=== PATIENT | male | born 1995 | race Caucasian/White ===

== ENCOUNTER 2019-05-07 03:32 | Emergency (ER) | payer BC ==
[~2019-05-07] VITALS: Ht 170.2 cm; Wt 54.4 kg
[~2019-05-07 03:32] MED LIST: EPIPEN0.3 MG/0.3; NOHOMEMEDICATIONS
[2019-05-07 04:03] LABS: HEMATOCRIT 46.9 % (42.0-52.0); MCH 30.1 pg (26.0-34.0); MCV 88.3 fL (80.0-100.0); NUCLEATED RBCS 0 /100WBC; PLATELET COUNT* 192 thou/uL (150-400); RDW-CV 13.6 % (10.5-14.5); WBC 17.5 thou/uL (4.0-11.0)
[2019-05-07 04:17] LABS: CALCIUM 9.9 mg/dL (8.5-10.1); CREATININE 0.9 mg/dL (0.6-1.3); POTASSIUM 4.3 mmol/L (3.5-5.1)
[2019-05-07 04:29] LABS: INFLUENZA A ANTIGEN Negative (Negative); INFLUENZA B ANTIGEN Negative (Negative)
[2019-05-07 04:30] LABS: ALBUMIN 4.9 g/dL (3.4-5.0); TOTAL BILIRUBIN 0.8 mg/dL (<0.1-1.0); TOTAL PROTEIN 8.7 g/dL (6.4-8.2)
[2019-05-07] MEDS ORDERED: ZOFRAN ODT4 MG PO (04:42)
[2019-05-07 04:50] LABS: URINE BLOOD 2+ (Negative); URINE CLARITY CLEAR; URINE COLOR YELLOW; URINE GLUCOSE-RANDOM NEGATIVE (Negative); URINE KETONES 2+ (Negative); URINE LEUKOCYTES-REFLEX NEGATIVE (Negative); URINE NITRITE-REFLEX NEGATIVE (Negative); URINE PROTEIN 1+ (Negative); URINE UROBILINOGEN 0.2 E.U./dl (0.2-1.0)
[2019-05-07 04:55] LABS: URINE BILIRUBIN 1+ (Negative)
[2019-05-07 04:57] LABS: ICTOTEST (BILI CONFIRMATORY) Negative (Negative)
[2019-05-07 04:59] LABS: CASTS None Seen /LPF (None Seen); CRYSTALS None Seen /LPF (None Seen); MUCUS >6 Heavy strn/LPF (None Seen); SQUAMOUS 0-3 Few /LPF (0-3); URINE RBC 3-10 Few /HPF (0-2); URINE WBC-REFLEX None Seen /HPF (0-5)
[2019-05-07 06:07] VITALS: BP 109/52
[2019-05-07 07:12] LABS: ABSOLUTE LYMPHOCYTES 0.2 thou/uL (0.8-5.3); ABSOLUTE MONOCYTES 0.2 thou/uL (0.0-1.2); ABSOLUTE NEUTROPHILS 17.2 thou/uL (1.6-8.1); PLATELET ESTIMATE ADEQUATE
== END 2019-05-07 06:08 | disposition home or self-care (01) ==
LOC: M.ERS 03:32
PROVIDERS: Emergency Medicine
DX: R11.2 Nausea with vomiting, unspecified (principal); R19.7 Diarrhea, unspecified; R10.32 Left lower quadrant pain; Z88.1 Allergy status to other antibiotic agents; Z88.0 Allergy status to penicillin; Z87.01 Personal history of pneumonia (recurrent)

== ENCOUNTER 2019-05-28 12:30 | Emergency (ER) | payer BC ==
[~2019-05-28] VITALS: Ht 167.6 cm; Wt 55.8 kg
[~2019-05-28 12:30] MED LIST changes: +ZOFRAN ODT4 MG PO
[2019-05-28 13:29] LABS: INFLUENZA A ANTIGEN Negative (Negative); INFLUENZA B ANTIGEN Negative (Negative)
[2019-05-28] MEDS ORDERED: MEDROLDOSEPACK PO (14:16)
[2019-05-28] MEDS ORDERED: VENTOLIN HFA 1818 GM INH (14:16)
[2019-05-28 14:29] VITALS: BP 110/66
== END 2019-05-28 14:30 | disposition home or self-care (01) ==
LOC: M.ERS 12:30
PROVIDERS: Nurse Practitioner Family
DX: J06.9 Acute upper respiratory infection, unspecified (principal); F17.210 Nicotine dependence, cigarettes, uncomplicated; Z88.1 Allergy status to other antibiotic agents; Z88.0 Allergy status to penicillin; Z87.01 Personal history of pneumonia (recurrent)

== ENCOUNTER 2019-08-19 14:04 | Emergency (ER) | payer BC ==
[~2019-08-19] VITALS: Ht 167.6 cm; Wt 55.8 kg
[~2019-08-19 14:04] MED LIST changes: +MEDROLDOSEPACK PO; +VENTOLIN HFA 1818 GM INH
[2019-08-19] MEDS ORDERED: CELEXA 10 MG TA10 M1 PO (14:46)
[2019-08-19] MEDS ORDERED: AMBIEN 10 MG TA10 MG PO (14:46)
[2019-08-19 15:43] LABS: HEMATOCRIT 46.7 % (42.0-52.0); HEMOGLOBIN 16.5 gm/dL (14.0-18.0); MCH 30.7 pg (26.0-34.0); MCHC 35.3 g/dL (28.0-37.0); MCV 86.9 fL (80.0-100.0); MPV 8.7 fl. (7.2-11.1); NUCLEATED RBCS 0 /100WBC; PLATELET COUNT* 169 thou/uL (150-400); RBC 5.37 mil/uL (4.50-6.00); RDW-CV 13.6 % (10.5-14.5); WBC 8.9 thou/uL (4.0-11.0)
[2019-08-19 15:53] LABS: CALCIUM 8.8 mg/dL (8.5-10.1); CREATININE 1.1 mg/dL (0.6-1.3); POTASSIUM 3.7 mmol/L (3.5-5.1)
[2019-08-19 15:58] LABS: ALBUMIN 3.8 g/dL (3.4-5.0); TOTAL BILIRUBIN 0.4 mg/dL (<0.1-1.0); TOTAL PROTEIN 8.2 g/dL (6.4-8.2)
[2019-08-19 16:44] LABS: ABSOLUTE LYMPHOCYTES 4.5 thou/uL (0.8-5.3); ABSOLUTE MONOCYTES 1.2 thou/uL (0.0-1.2); ABSOLUTE NEUTROPHILS 3.2 thou/uL (1.6-8.1); ATYPICAL LYMPHS 17 %; PLATELET ESTIMATE ADEQUATE
[2019-08-19] MEDS ORDERED: NORCO 5-325 TA1 EAC1 PO (17:38)
[2019-08-19] MEDS ORDERED: MEDROLDOSEPACK PO (17:38)
[2019-08-19 18:03] VITALS: BP 120/65
[2019-08-20] MEDS ORDERED: ONDANSETRON ODT4 MG PO (19:21)
== END 2019-08-19 18:03 | disposition home or self-care (01) ==
LOC: M.ERS 14:04
PROVIDERS: Nurse Practitioner Family
DX: B27.90 Infectious mononucleosis, unspecified without complication (principal); F17.210 Nicotine dependence, cigarettes, uncomplicated; Z91.030 Bee allergy status; Z88.0 Allergy status to penicillin; Z88.1 Allergy status to other antibiotic agents

== ENCOUNTER 2019-08-20 15:56 | Emergency (ER) | payer BC ==
[~2019-08-20] VITALS: Ht 170.2 cm; Wt 55.8 kg
[~2019-08-20 15:56] MED LIST changes: +AMBIEN 10 MG TA10 MG PO; +CELEXA 10 MG TA10 M1 PO; +NORCO 5-325 TA1 EAC1 PO
[2019-08-20 16:58] LABS: HEMATOCRIT 43.4 % (42.0-52.0); HEMOGLOBIN 15.4 gm/dL (14.0-18.0); MCH 30.4 pg (26.0-34.0); MCHC 35.4 g/dL (28.0-37.0); MCV 85.7 fL (80.0-100.0); MPV 8.5 fl. (7.2-11.1); NUCLEATED RBCS 0 /100WBC; PLATELET COUNT* 159 thou/uL (150-400); RBC 5.06 mil/uL (4.50-6.00); RDW-CV 13.2 % (10.5-14.5); WBC 10.6 thou/uL (4.0-11.0)
[2019-08-20 17:11] LABS: CALCIUM 8.3 mg/dL (8.5-10.1); POTASSIUM 3.1 mmol/L (3.5-5.1)
[2019-08-20 17:15] LABS: ALBUMIN 3.5 g/dL (3.4-5.0); TOTAL BILIRUBIN 0.5 mg/dL (<0.1-1.0); TOTAL PROTEIN 7.5 g/dL (6.4-8.2)
[2019-08-20 17:53] LABS: PLATELET ESTIMATE ADEQUATE
[2019-08-20 17:54] LABS: ABSOLUTE LYMPHOCYTES 3.5 thou/uL (0.8-5.3); ABSOLUTE MONOCYTES 1.9 thou/uL (0.0-1.2); ABSOLUTE NEUTROPHILS 5.2 thou/uL (1.6-8.1); ATYPICAL LYMPHS 4 %
[2019-08-20] MEDS ORDERED: ONDANSETRON ODT4 MG PO (19:21)
[2019-08-20 19:42] VITALS: BP 128/82
--- NOTE | 2019-08-21 15:25 | EKG ---
[place] [address] ELECTROCARDIOGRAM REPORT Name: JAVIER SANDOVAL Room: [facility]#: [id number] Admission: 08/20/19 Attend Phys: Discharge: 08/20/19 Date of : 89 Date of Service: 08/20/19 1621 Report #: [id number] THIS REPORT FOR: //name// [facility] ED Test Date: 2019-08-20 Test Time: 16:21:06 Pat Name: JAVIER SANDOVAL Department: Room: Gender: Registered Nurse Ambulatory: [facility] : 1995 Requested By: Shalonda Ramirez Order Number: [id number] Anyi MD: Shawn Monae Measurements Intervals Cooper Rate: 95 P: -28 ME: 137 QRS: 70 QRSD: 91 T: 25 QT: 331 QTc: 416 Interpretive Statements Sinus rhythm ST elev, probable normal early repol pattern No previous ECG available for comparison Electronically Signed On 08-21-2019 15:24:39 CDT by Shawn Monae [email or web address] <ELECTRONICALLY SIGNED> By: Shawn Monae MD, [facility] 08/21/19 1524 1621 20 Shawn Monae MD, FAC /EPI
== END 2019-08-20 19:43 | disposition home or self-care (01) ==
LOC: M.ERS 15:56
PROVIDERS: Physician Assistant
DX: B27.90 Infectious mononucleosis, unspecified without complication (principal); R10.13 Epigastric pain; R10.11 Right upper quadrant pain; R11.2 Nausea with vomiting, unspecified; Z91.030 Bee allergy status; Z88.0 Allergy status to penicillin; Z88.1 Allergy status to other antibiotic agents

== ENCOUNTER 2019-09-29 20:40 | Emergency (ER) | payer BC | END 2019-09-30 01:30 | disposition home or self-care (01) | LOC: M.ERS 20:40 | DX: T67.5XXA Heat exhaustion, unspecified, initial encounter (principal); N28.9 Disorder of kidney and ureter, unspecified; R11.2 Nausea with vomiting, unspecified; Z91.030 Bee allergy status; Z88.0 Allergy status to penicillin; Z88.1 Allergy status to other antibiotic agents; X58.XXXA Exposure to other specified factors, initial encounter; Y93.89 Activity, other specified; Y92.89 Other specified places as the place of occurrence of the external cause; Y99.0 Civilian activity done for income or pay ==

== ENCOUNTER 2019-10-31 10:26 | Emergency (ER) | payer BC ==
[~2019-10-31] VITALS: Ht 167.6 cm; Wt 54.4 kg
[~2019-10-31 10:26] MED LIST changes: +FLEXERIL PO; +MUPIROCIN15 GM TOP; +ONDANSETRON ODT4 MG PO
[2019-10-31 10:35] VITALS: BP 127/86
[2019-10-31] MEDS ORDERED: VENLAFAXINE HCL25 MG PO (10:38)
[2019-10-31] MEDS ORDERED: TRAMADOL 50 MG50 MG PO (10:50)
== END 2019-10-31 11:02 | disposition home or self-care (01) ==
LOC: M.ERS 10:26
DX: S60.221A Contusion of right hand, initial encounter (principal); F17.210 Nicotine dependence, cigarettes, uncomplicated; Z88.0 Allergy status to penicillin; Z88.1 Allergy status to other antibiotic agents; Y04.0XXA Assault by unarmed brawl or fight, initial encounter; Y93.89 Activity, other specified; Y92.89 Other specified places as the place of occurrence of the external cause; Y99.8 Other external cause status